=== PATIENT | male | born 1980 | race Caucasian/White ===

== ENCOUNTER 2021-11-20 14:09 | Emergency (ER) | payer MEDICAID ==
[2021-11-20 17:42] VITALS: BP 118/78; PULSE 77
== END 2021-11-20 17:42 | disposition home or self-care (01) ==
LOC: JD.ED 14:09
DX: M72.2 Plantar fascial fibromatosis (principal); Z79.899 Other long term (current) drug therapy
CPT/HCPCS: 73620-26-RT; 73620-RT; 99283; 99283-25